=== PATIENT | female | born 1990 | race Caucasian/White ===

== ENCOUNTER 2022-10-15 10:24 | Outpatient (OUT) | payer OTHER, SELFPAY ==
--- NOTE | 2022-10-15 10:38 | XR_ITS ---
[address] [address] Patient Name: EVELINA ALVA MRN: [id number] date: 1990 Sex: F Assigned Patient Location: [facility] Current Patient Location: [facility] Accession/Order Number: [id number] Exam Date: 10/15/2022 11:00 Report Date: 10/15/2022 12:21 At the request of: LOTUS IVAN Procedure: XR cervical spine w flex/ext EXAM: XR cervical spine w flex/ext HISTORY: Cervicalgia M54.2 COMPARISON: None. TECHNIQUE: 2 views flexion and extension. FINDINGS: Satisfactory alignment. Maintained vertebral body heights and disc spaces. No acute fracture or subluxation. Unremarkable soft tissues. IMPRESSION: Unremarkable exam. Electronically authenticated by: KAPIL HIRSCH Date: 10/15/2022 12:21
--- NOTE | 2022-10-15 10:39 | XR_ITS ---
[address] [address] Patient Name: EVELINA ALVA MRN: [id number] date: 1990 Sex: F Assigned Patient Location: [facility] Current Patient Location: [facility] Accession/Order Number: [id number] Exam Date: 10/15/2022 11:00 Report Date: 10/15/2022 13:16 At the request of: LOTUS IVAN Procedure: XR thoracic spine 3V EXAM: XR thoracic spine 3V HISTORY: Cervicalgia M54.2 COMPARISON: None. TECHNIQUE: 2 views FINDINGS: Status post posterior fusion of L1-T6. Intact hardware. Maintained vertebral body heights and disc spaces. No acute fracture or subluxation. Unremarkable soft tissues. IMPRESSION: Status post posterior fusion of the thoracolumbar spine as above. Electronically authenticated by: KAPIL HIRSCH Date: 10/15/2022 13:16
== END 2022-10-15 10:25 | disposition home or self-care (01) ==
LOC: RAD 10:29
PROVIDERS: PCP Family Medicine; Visit Provider Family Medicine
DX: M54.2 Cervicalgia (principal); Z98.1 Arthrodesis status
CPT/HCPCS: 72052; 72072

== ENCOUNTER 2023-01-01 15:08 | Outpatient (OUT) | payer OTHER, SELFPAY ==
--- NOTE | 2023-01-01 15:12 | XR_ITS ---
The [address] [address] Patient Name: EVELINA ALVA MRN: [id number] date: 1990 Sex: F Assigned Patient Location: [facility] Current Patient Location: [facility] Accession/Order Number: [id number] Exam Date: 01/01/2023 15:13 Report Date: 01/01/2023 16:13 At the request of: LOTUS IAVN Procedure: XR chest 2V XR chest 2V COMPARISON: None. CLINICAL HISTORY: Cough R05.2 TECHNIQUE: 2 views FINDINGS: There is a normal cardiac and mediastinal contour. The pulmonary vascular pattern is normal. The lungs are clear and the pleural margins are sharp. There is posterior fusion hardware T6-L1 XR/XR chest 2V IMPRESSION: NO ACUTE RADIOGRAPHIC FINDINGS. Electronically authenticated by: BREANNA UBRLESON Date: 01/01/2023 16:13
== END 2023-01-01 15:09 | disposition home or self-care (01) ==
LOC: RAD 15:09
PROVIDERS: PCP Family Medicine; Visit Provider Family Medicine
DX: R05.2 Subacute cough (principal)
CPT/HCPCS: 71046

== ENCOUNTER 2023-03-05 10:05 | Outpatient (OUT) | payer OTHER, SELFPAY ==
--- NOTE | 2023-03-05 10:10 | US_ITS ---
[address] [address] Patient Name: EVELINA ALVA MRN: [id number] date: 1990 Sex: F Assigned Patient Location: [facility] Current Patient Location: [place] Accession/Order Number: [id number] Exam Date: 03/05/2023 10:15 Report Date: 03/05/2023 15:46 At the request of: STEVEN LOVING Procedure: US pelvis transvaginal EXAMINATION: US pelvis transvaginal HISTORY: Abnormal Uterine Bleeding N93.9 COMPARISON: No relevant comparison available. TECHNIQUE: Transabdominal and/or transvaginal sonographic examination was performed as indicated by examination type. FINDINGS: UTERUS: Normal size and appearance. Uterus size: 8.8 x 5.9 x 4.6 cm ENDOMETRIUM: Normal homogeneous appearance. Endometrial thickness: 4 mm RIGHT OVARY: Contains a 5.2 cm benign-appearing cyst. Duplex Doppler demonstrates normal waveform and flow; resistive index 0.6. Ovary size: 6.1 x 3.8 x 4.7 cm LEFT OVARY: Contains a 1.9 cm benign-appearing cyst. Duplex Doppler demonstrates normal waveform and flow; resistive index 0.5. Ovary size: 3.2 x 2.3 x 2.6 cm CUL-DE-SAC: Unremarkable. No significant free fluid. BLADDER: Unremarkable. OTHER: None. US/US pelvis transvaginal IMPRESSION: 1. Right ovary contains a 5.2 cm simple, benign-appearing cyst. Consider follow-up ultrasound evaluation in 6 weeks to document regression. 2. Unremarkable uterus and endometrium. No suspicious findings to account for patient's symptoms. Electronically authenticated by: RUCHI VAIL Date: 03/05/2023 15:46
[2023-03-05 11:11] LABS: Estimated Average Glucose 103 mg/dL; Glycohemoglobin A1C 5.2 % (4.5-6.2)
[2023-03-05 11:16] LABS: Basophils Percent Auto 0.6 % (0.2-2.0); Eosinophils Absolute Auto 0.2 10^3/uL (0.0-0.7); Eosinophils Percent Auto 2.3 % (0.9-7.0); Hematocrit 40.9 % (36.0-48.0); Hemoglobin 14.1 g/dL (12.0-16.0); Immature Granulocytes Abs Auto 0.02 10^3/uL (0.00-0.03); Immature Granulocytes Pct Auto 0.3 % (0.0-0.5); Lymphocytes Absolute Auto 2.1 10^3/uL (1.2-3.8); Lymphocytes Percent Auto 30.4 % (20.5-60.0); Mean Corpuscular HGB Conc 34.5 g/dL (29.9-35.2); Mean Corpuscular Hemoglobin 30.1 pg (26.7-34.0); Mean Corpuscular Volume 87.4 fL (81.0-99.0); Mean Platelet Volume 9.5 fL (9.5-13.5); Monocytes Absolute Auto 0.5 10^3/uL (0.3-0.8); Monocytes Percent Auto 7.1 % (1.7-12.0); Neutrophils Absolute Auto 4.1 10^3/uL (1.4-6.5); Neutrophils Percent Auto 59.3 % (43.0-75.0); Platelet Count 295 10^3/uL (150-450); Red Blood Count 4.68 10^6/uL (4.20-5.40); Red Cell Distribution Width 12.1 % (11.0-15.0); White Blood Count 6.9 10^3/uL (4.0-11.0)
[2023-03-05 11:20] LABS: INR 0.93; Partial Thromboplastin Time 30.2 sec (22.3-36.2); Prothrombin Time 9.9 sec (9.0-11.6)
[2023-03-05 11:40] LABS: Free T4 0.78 ng/dL (0.76-1.46)
[2023-03-05 11:45] LABS: HCG Quantitative <1 mIU/mL; Thyroid Stimulating Hormone 1.098 uIU/mL (0.358-3.740)
== END 2023-03-05 10:06 | disposition home or self-care (01) ==
LOC: US 10:05
PROVIDERS: PCP Family Medicine; Visit Provider Obstetrics & Gynecology
DX: N93.9 Abnormal uterine and vaginal bleeding, unspecified (principal); N83.201 Unspecified ovarian cyst, right side; N83.202 Unspecified ovarian cyst, left side
CPT/HCPCS: 36415; 76830; 83036; 84439; 84443; 84702; 85025; 85610; 85730

== ENCOUNTER 2024-07-29 14:57 | Outpatient (REF) | payer BC, SELFPAY | END 2024-07-29 14:58 | disposition home or self-care (01) | LOC: LAB 14:57 | PROVIDERS: PCP Family Medicine; Visit Provider Physician Assistant | DX: Z01.419 Encounter for gynecological examination (general) (routine) without abnormal findings (principal) | CPT/HCPCS: 88175 ==